=== PATIENT | male | born 1985 | race Caucasian/White ===

== ENCOUNTER 2023-03-09 13:05 | Emergency (ER) | payer OTHER ==
[~2023-03-09] VITALS: Ht 180.3 cm; Wt 90.3 kg
[2023-03-09 13:28] VITALS: BP_SYST 114; PULSE 93; RESP 17; TEMP 98.6; O2SAT 97
[2023-03-09 14:35] VITALS: BP_SYST 120; PULSE 66; RESP 19; TEMP 98; O2SAT 96
== END 2023-03-09 14:30 | disposition home or self-care (01) ==
LOC: SED 13:05
DX: S13.4XXA Sprain of ligaments of cervical spine, initial encounter (principal); S33.5XXA Sprain of ligaments of lumbar spine, initial encounter; S23.3XXA Sprain of ligaments of thoracic spine, initial encounter; I10 Essential (primary) hypertension; Z79.899 Other long term (current) drug therapy; V49.40XA Driver injured in collision with unspecified motor vehicles in traffic accident, initial encounter; Y93.89 Activity, other specified; Y92.89 Other specified places as the place of occurrence of the external cause; Y99.8 Other external cause status
CPT/HCPCS: 70450-TC; 72080-TC; 72125-TC; 76376; 99284